=== PATIENT | female | born 1995 | race Caucasian/White ===

== ENCOUNTER 2019-05-27 13:29 | Emergency (ER) | payer MEDICAID ==
[~2019-05-27] VITALS: Ht 160 cm; Wt 56.8 kg
[2019-05-27 13:37] VITALS: Ht 160 cm; Wt 56.8 kg
[2019-05-27] MEDS ORDERED: CLEOCIN HCL300 MG PO (13:39)
[2019-05-27 16:56] VITALS: BP 102/74
== END 2019-05-27 16:57 | disposition home or self-care (01) ==
LOC: D.ER 13:29
DX: S02.2XXA Fracture of nasal bones, initial encounter for closed fracture (principal); W50.0XXA Accidental hit or strike by another person, initial encounter; Y93.9 Activity, unspecified; Y92.9 Unspecified place or not applicable

== ENCOUNTER 2019-07-12 21:30 | Emergency (ER) | payer MEDICAID ==
[~2019-07-12] VITALS: Ht 160 cm; Wt 57.2 kg
[~2019-07-12 21:30] MED LIST: CLEOCIN HCL300 MG PO
[2019-07-12 21:37] VITALS: Ht 160 cm; Wt 57.2 kg
[2019-07-12 22:00] LABS: BASOPHILS 0.2 % (0-2); EOSINOPHILS 0.8 % (0-7); HEMATOCRIT 44.5 % (36.0-48.0); HEMOGLOBIN 14.2 g/dL (12-16); IMMATURE GRANULOCYTES 0.2 % (0-5); LYMPHOCYTES 27.9 % (15-50); MCH 28.3 pg (26.0-34.0); MCHC 31.9 g/dL (31.0-37.0); MCV 88.6 fL (80.0-100.0); MEAN PLATELET VOLUME 9.5 fL (7.4-10.4); MONOCYTES 6.5 % (2-11); NEUTROPHILS 64.4 % (40-80); PLATELET COUNT 282 10x3/uL (130-400); RBC 5.02 10x6/uL (4.00-5.40); RDW 13.4 % (11.5-14.5); WBC 9.5 10x3/uL (4.8-10.8)
[2019-07-12 22:01] LABS: BILIRUBIN NEGATIVE (NEGATIVE); GLUCOSE NEGATIVE (NEGATIVE); KETONE NEGATIVE (NEGATIVE); NITRITE NEGATIVE (NEGATIVE); UROBILINOGEN NORMAL (NORMAL)
[2019-07-12 22:03] LABS: AMORPHOUS SEDIMENT <1+ /lpf (NONE SEEN); BACTERIA MODERATE /hpf (NEGATIVE); RED CELLS - URINE 0-5 /hpf (0-5); WHITE CELLS - URINE 0-5 /hpf (NEGATIVE)
[2019-07-12 22:04] LABS: HCG URINE NEGATIVE (NEGATIVE)
[2019-07-12 22:15] LABS: CALC OSMOLALITY 278 mosm/kg (275-300); CALCIUM 8.7 mg/dL (8.5-10.1); CARBON DIOXIDE 26.9 mmol/L (21.0-32.0); CHLORIDE - SERUM 99 mmol/L (98-107); CREATININE - SERUM 0.8 mg/dL (0.6-1.3); GLUCOSE 97 mg/dL (74-106); POTASSIUM - SERUM 3.4 mmol/L (3.5-5.1); SODIUM 139 mmol/L (136-145); UREA NITROGEN 15 mg/dL (7-18); eGFR NON AFRICAN AMERICAN > 90 mL/min (90-120)
[2019-07-12 22:16] LABS: UDS - AMPHET POSITIVE QUAL (NEGATIVE); UDS - BARB NEGATIVE QUAL (NEGATIVE); UDS - BENZO NEGATIVE QUAL (NEGATIVE); UDS - COCAINE NEGATIVE QUAL (NEGATIVE); UDS - OPIATE NEGATIVE QUAL (NEGATIVE); UDS - PCP NEGATIVE QUAL (NEGATIVE); UDS - THC POSITIVE QUAL (NEGATIVE)
[2019-07-12 22:25] LABS: ALBUMIN 3.9 g/dL (3.4-5.0); ALKALINE PHOSPHATASE 82 U/L (30-120); ALT (SGPT) 29 U/L (10-68); BILIRUBIN - TOTAL 0.24 mg/dL (0.2-1.3); C-REACTIVE PROTEIN 0.4 mg/dL (0.0-0.9); LIPASE 67 U/L (73-393); PROTEIN - SERUM 8.4 g/dL (6.4-8.2)
[2019-07-12 23:34] VITALS: BP 134/76
== END 2019-07-12 23:35 | disposition home or self-care (01) ==
LOC: D.ER 21:30
PROVIDERS: Family Medicine
DX: R51 Headache (principal); R07.9 Chest pain, unspecified; M54.5 Low back pain; H53.9 Unspecified visual disturbance